=== PATIENT | female | born 1955 | race Two or more races ===

== ENCOUNTER 2017-03-27 08:26 | Outpatient (CLI) | payer OTHER ==
[~2017-03-27] VITALS: Ht 152.4 cm; Wt 109.8 kg
[~2017-03-27 08:26] MED LIST: CLONAZEPAM0.5 MG PO; LYRICA50 MG PO; NOLVADEX10 MG; NOLVADEX10 MG PO; PERCOCET 5/3251 TAB PO; SYNTHROID50 MCG PO; [UNRECOGNIZED DRUG - OTHER]
== END 2017-03-27 08:45 | disposition home or self-care (01) ==
LOC: OFIC 805 08:26
DX: J04.0 Acute laryngitis (principal); J31.0 Chronic rhinitis; M35.00 Sjogren syndrome, unspecified; R49.8 Other voice and resonance disorders

== ENCOUNTER 2017-04-24 07:24 | Outpatient (CLI) | payer OTHER ==
[~2017-04-24] VITALS: Ht 152.4 cm; Wt 109.8 kg
[2017-04-24] MEDS ORDERED: FAMCICLOVIR500 MG PO (08:54)
[2017-04-24] MEDS ORDERED: ZANTAC300 MG PO (08:54)
[2017-04-24] MEDS ORDERED: OMEPRAZOLE40 MG PO (08:54)
== END 2017-04-24 07:40 | disposition home or self-care (01) ==
LOC: OFIC 805 07:24
DX: K12.1 Other forms of stomatitis (principal); M35.00 Sjogren syndrome, unspecified; J37.0 Chronic laryngitis; J31.0 Chronic rhinitis

== ENCOUNTER 2017-05-29 07:45 | Outpatient (CLI) | payer OTHER ==
[~2017-05-29] VITALS: Ht 152.4 cm; Wt 109.8 kg
[~2017-05-29 07:45] MED LIST changes: +FAMCICLOVIR500 MG PO; +OMEPRAZOLE40 MG PO; +ZANTAC300 MG PO
== END 2017-05-29 08:00 | disposition home or self-care (01) ==
LOC: OFIC 805 07:45
DX: R49.8 Other voice and resonance disorders (principal); A69.1 Other Vincent's infections; Q87.1 Congenital malformation syndromes predominantly associated with short stature

== ENCOUNTER 2017-06-25 17:04 | Emergency (ER) | payer OTHER ==
[~2017-06-25] VITALS: Ht 162.6 cm; Wt 104.3 kg
== END 2017-06-25 20:33 | disposition home or self-care (01) ==
LOC: ER 17:04
DX: J04.0 Acute laryngitis (principal); J32.8 Other chronic sinusitis

== ENCOUNTER 2017-09-11 19:02 | Emergency (ER) | payer OTHER ==
[~2017-09-11] VITALS: Ht 162.6 cm; Wt 104.3 kg
[2017-09-12] MEDS ORDERED: TAMS0.4C PO (00:18)
[2017-09-12] MEDS ORDERED: ULTRAM50 MG PO (00:18)
[2017-09-12] MEDS ORDERED: URIN D.S. TABL1 EACH PO (00:18)
== END 2017-09-12 00:58 | disposition home or self-care (01) ==
LOC: ER 19:02
DX: R10.12 Left upper quadrant pain (principal); R10.32 Left lower quadrant pain; N39.0 Urinary tract infection, site not specified; R82.99 Other abnormal findings in urine

== ENCOUNTER 2017-10-03 07:15 | Outpatient (CLI) | payer OTHER ==
[~2017-10-03 07:15] MED LIST changes: +TAMS0.4C PO; +ULTRAM50 MG PO; +URIN D.S. TABL1 EACH PO
== END 2017-10-03 07:23 | disposition home or self-care (01) ==
LOC: NUCLEAR 07:15
DX: I87.2 Venous insufficiency (chronic) (peripheral) (principal); I82.493 Acute embolism and thrombosis of other specified deep vein of lower extremity, bilateral

== ENCOUNTER 2017-10-07 08:50 | Outpatient (CLI) | payer OTHER | END 2017-10-07 09:29 | disposition home or self-care (01) | LOC: NUCLEAR 08:50 | DX: R60.0 Localized edema (principal); I73.9 Peripheral vascular disease, unspecified ==

== ENCOUNTER 2019-04-27 10:44 | Outpatient (CLI) | payer OTHER | END 2019-04-27 10:51 | disposition home or self-care (01) | LOC: SONOGRAMA 10:44 | DX: N60.11 Diffuse cystic mastopathy of right breast (principal); N60.12 Diffuse cystic mastopathy of left breast ==

== ENCOUNTER 2021-01-09 08:22 | Outpatient (CLI) | payer OTHER | END 2021-01-09 08:36 | disposition home or self-care (01) | LOC: PPH VACUNA 08:22 | PROVIDERS: ATTEND Emergency Medicine Pediatric Emergency Medicine | DX: Z23 Encounter for immunization (principal) ==

== ENCOUNTER 2021-08-02 17:48 | Emergency (ER) | payer OTHER ==
[~2021-08-02] VITALS: Ht 162.6 cm; Wt 98.9 kg
[2021-08-02] MEDS ORDERED: PROAIR HFA8.5 GM IH (22:06)
[2021-08-02] MEDS ORDERED: TUSNEL LIQUID178 ML PO (22:06)
[2021-08-02] MEDS ORDERED: MEDROLPACK PO (22:06)
== END 2021-08-02 22:21 | disposition home or self-care (01) ==
LOC: ER 17:48
DX: U07.1 COVID-19 (principal); Z88.6 Allergy status to analgesic agent; L93.0 Discoid lupus erythematosus

== ENCOUNTER 2021-08-04 08:45 | Outpatient (CLI) | payer OTHER ==
[~2021-08-04 08:45] MED LIST changes: +MEDROLPACK PO; +PROAIR HFA8.5 GM IH; +TUSNEL LIQUID178 ML PO
== END 2021-08-04 09:35 | disposition home or self-care (01) ==
LOC: ASH CLINIC 08:45
PROVIDERS: ATTEND General Practice
DX: U07.1 COVID-19 (principal)